=== PATIENT | male | born 1980 | race African-American/Black ===

== ENCOUNTER 2020-07-21 13:14 | Emergency (ER) | payer SELFPAY ==
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
[2020-07-21 14:23] LABS: Absolute Lymphocytes (CBC) 1.8 K/uL (0.7-4.9); Basophils % 0.7 % (0-1.3); Hematocrit 44.8 % (39.6-49.0); Lymphocytes % 23.2 % (15.3-44.8); MPV 10.1 fL (7.6-11.3)
[2020-07-21 14:27] LABS: Protime INR 0.94
[2020-07-21 14:37] LABS: BUN Blood Urea Nitrogen 8 mg/dL (7-18); Bicarbonate 26 mmol/L (21-32); Glucose Level 87 mg/dL (74-106); Potassium 3.9 mmol/L (3.5-5.1); Sodium Level 141 mmol/L (136-145)
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
--- NOTE | 2020-07-21 14:49 | RAD REPORT ---
EXAM DESCRIPTION: Kush Single View07/21/2020 2:22 pm CLINICAL HISTORY: Chest pain COMPARISON: none FINDINGS: The lungs appear clear of acute infiltrate. The heart is normal size IMPRESSION: No acute abnormalities displayed
[2020-07-26 10:42] VITALS: TEMP 99.5
[2020-07-26 10:44] VITALS: BP 124/80; O2SAT 100
== END 2020-07-21 15:10 | disposition short-term general hospital (02) ==
LOC: ER 13:14
DX: S06.6X0A Traumatic subarachnoid hemorrhage without loss of consciousness, initial encounter (principal); V49.50XA Passenger injured in collision with unspecified motor vehicles in traffic accident, initial encounter
CPT/HCPCS: 36415; 70450; 71045; 72125; 72170; 80048; 85025; 85610; 85730; 99285; G0390